=== PATIENT | female | born 1985 | race Caucasian/White ===

== ENCOUNTER 2016-07-31 16:49 | Emergency (ER) | payer OTHER ==
[~2016-07-31] VITALS: Ht 160 cm; Wt 56.8 kg
--- OUTSIDE RECORDS SUMMARY | 2016-07-31 16:57 | XMS REPORT | Continuity of Care Document ---
Author Author [facility] Organization [facility] Address Unknown Phone Unavailable Care Team Providers Care Product Safety Head Name Role Phone MIGUELANGEL MACHADO MD PCP [phone] Insurance Providers Guarantor Wilma Byrd Address [address] [place] [address] Email DENIED/NO PORTAL Payer [facility] [employer] [facility] Policy Number [id number] Subscriber's Name Wilma Byrd Relationship 18 Self Effective Date 15 Expiration Date 15 Advance Directives Directive Response Recorded Date/Time Ordered Resuscitation Status Full Code 10/10/15 11:43am Resuscitation Documents on File No 10/11/15 8:52am DPOA for Healthcare Only No 10/11/15 8:52am Problems Active Problems Medical Problem Onset Date Status Laceration of wrist Unknown Acute Medications Current Home Medications Medication Dose Units Route Directions Days Qty Instructions Start Date Ascorbic Acid (Vitamin C) 1,000 Mg Tablet 1 Tab Oral Twice A Day 09/24/15 Buspirone Hcl 10 Mg Tablet 0.5 Tab Oral Three Times A Day Hydrocodone/Acetaminophen ([place] 5-325 Tablet) 5-325 Tablet 1-2 Tab Oral Every 6 Hours as needed for Pain 20 Tablet This medication contains Tylenol , do not take more than 3,000 mg of Tylenol in a 24 hr period. 10/11/15 Lactobacillus Combination No.4 (Probiotic) 1 Each Capsule 1 Cap Oral Daily 09/24/15 Meloxicam 15 Mg Tablet 15 Mg Oral Daily 09/24/15 Multivitamin (Multi-Day Vitamins) 1 Each Tablet 1 Tab Oral Daily 30 Tablet 09/24/15 Past Home Medications Medication Directions Ordered Status Fluoxetine Hcl (Prozac) 10 Mg Capsule, 10 Mg Oral Daily 06/21/10 Discontinued Vits W-Ca,Fe,Fa(<1MG) () 1 Tab Tablet, 1 Tab Oral Daily 07/29 Discontinued Social History Social History Problem Response Recorded Date/Time Onset Date Status Chewing Tobacco Status No 10/11/2015 9:06am Not Applicable Not Applicable Hx Substance Use No 10/11/2015 9:06am Not Applicable Not Applicable Hx Alcohol Use Y RARELY 10/11/2015 9:06am Not Applicable Not Applicable Has the pt used tobacco in the last 12 months No 10/11/2015 9:06am Not Applicable Not Applicable Query Response Start Date Stop Date Smoking Status Never smoker Hospital Discharge Instructions Instructions: Care Instructions: Reason for Hospitalization: excision left wrist ganglion cyst I was in the hospital because (patient own words): GANGLION CYST REMOVED FROM LEFT WRIST Discharge Diet: Reg Discharge Activity: Light use of left hand and wrist. Follow Up Appointments: DR GR ON 10/24/15 AT 1:00 PM Pending Lab / Results: No Pending Lab Patient Instructions: Elevate the left hand to prevent swelling. Wound/Incision Care: Do not get the incision wet until you see Dr Gr on October 24. You may remove the dressings in 4-5 days and cover with a bandaid. Notify Physician If: Uncontrolled pain, drainage or fever. Condition at time of discharge: Good Plan of Care Discharge Date 10/11/15 11:55am Instructions/Education Provided [facility] [place] General Instructions Prescriptions See Medication Section Functional Status Query Response Date Recorded Ability to complete ADL's impeded by No change October 11, 2015 8:52am Allergies, Adverse Reactions, Alerts Allergen Type Severity Reaction Status Last Updated NKDA Allergy Unknown Active 10/05/14 Immunizations Query Response on File Recorded Date/Time Hx Influenza Vaccination Y fall 201410/11/15 9:06am Hx Pneumococcal Vaccination No 10/11/15 9:06am Hx Tetanus, Diptheria, Pertussis Yes 10/05/14 6:37pm Hx Influenza Vaccination Y fall 201410/11/15 9:06am Hx Tetanus, Diptheria, Pertussis Yes 10/05/14 6:37pm Vital Signs Acute Vital Signs Vital Response Date/Time Temperature (Fahrenheit) 96.7 deg F (96.8 - 99.1) 10/11/2015 10:43am Temperature (Calculated Celsius) 35.63771 degrees C (36.0 - 37.3) 10/11/2015 10:43am Temperature Source Temporal 10/11/2015 10:43am Pulse Rate (adult) 52 bpm (60 - 100) 10/11/2015 11:50am Respiratory Rate 20 breaths/min (10 - 20) 10/11/2015 11:50am O2 Sat by Pulse Oximetry 99 % (90 - 100) 10/11/2015 11:50am Oxygen Delivery Method Room Air 10/11/2015 9:54am Oxygen Delivery Method Room Air 10/11/2015 11:50am Blood Pressure 91/56 mm Hg 10/11/2015 11:50am Blood Pressure Source Automatic Cuff 10/11/2015 11:50am Height (Feet) 5 feet 10/11/2015 8:35am Height (Inches) 4.00 inches 10/11/2015 8:35am Weight (Kilograms) 56.800 kg 10/11/2015 8:35am Body Mass Index (BMI) 21.5 10/11/2015 8:35am Results No known relevant diagnostic tests, laboratory data and/or discharge summary. Procedures Procedure Status Date Provider(s) Excision of ganglion cyst Completed 10/11/15 EDSON GR MD Encounters Encounter Location Arrival/Admit Date Discharge/Depart Date Attending Provider Departed [facility] 10/11/15 8:26am 10/11/15 11 :55am EDSON GR MD
[2016-07-31] MEDS ORDERED: TURM500C8 PO (17:29)
[2016-07-31] MEDS ORDERED: LACT1CAP62 PO (17:29)
[2016-07-31] MEDS ORDERED: LORA1TAB PO (17:29)
[2016-07-31] MEDS ORDERED: MAGN400T39 PO (17:29)
[2016-07-31] MEDS ORDERED: MULT1TAB69 PO (17:29)
[2016-07-31 18:02] VITALS: BP 111/77
--- NOTE | 2016-07-31 18:13 | Diagnostic Imaging Report ---
INDICATION: Pain in left ankle. EXAMINATION: AP, oblique and lateral views of the left ankle were obtained. FINDINGS: No fracture or acute bony abnormality is seen. IMPRESSION: Negative left ankle. Dictated by: Dictated on workstation # [id number]
== END 2016-07-31 17:58 | disposition home or self-care (01) ==
LOC: ED 16:54
DX: S93.402A Sprain of unspecified ligament of left ankle, initial encounter (principal); X50.0XXA Overexertion from strenuous movement or load, initial encounter; Y93.F2 Activity, caregiving, lifting; Y92.238 Other place in hospital as the place of occurrence of the external cause; Y99.0 Civilian activity done for income or pay
CPT/HCPCS: 73610; 99282; L4350

== ENCOUNTER → 2016-07-31 | Outpatient (CLI) | payer OTHER ==
[~2016-07-31] VITALS: Ht 160 cm; Wt 56.7 kg
[~2016-07-31] MED LIST: LACT1CAP62 PO; LORA1TAB PO; MAGN400T39 PO; MULT1TAB69 PO; TURM500C8 PO
[2016-07-31 17:41] VITALS: BP 111/77
== END ==
LOC: EUOP 16:58
PROVIDERS: ATTEND Emergency Medicine
DX: Z02.89 Encounter for other administrative examinations (principal); Z02.83 Encounter for blood-alcohol and blood-drug test